=== PATIENT | male | born 1985 | race African-American/Black ===

== ENCOUNTER 2019-09-13 16:00 | Emergency (ER) | payer BC ==
[~2019-09-13] VITALS: Ht 177.8 cm; Wt 84.1 kg
[2019-09-13] MEDS ORDERED: KETOROLAC TROMETHAMINE 60 MG/2 ML VIAL IM ONE (18:45)
[2019-09-13 20:20] VITALS: BP 149/89
== END 2019-09-13 20:21 | disposition home or self-care (01) ==
LOC: EMS 16:01
DX: S63.286A Dislocation of proximal interphalangeal joint of right little finger, initial encounter (principal); W23.0XXA Caught, crushed, jammed, or pinched between moving objects, initial encounter; Y93.61 Activity, american tackle football; Y92.89 Other specified places as the place of occurrence of the external cause; Y99.8 Other external cause status
CPT/HCPCS: 29130; 73130; 73140; 96372; 99283; J1885